=== PATIENT | female | born 1990 | race African-American/Black ===

== ENCOUNTER 2017-01-20 22:15 | Emergency (ER) | payer OTHER ==
[~2017-01-20] VITALS: Ht 167.6 cm; Wt 75.0 kg
[2017-01-20] MEDS ORDERED: TRAZ50TA11 PO (22:22)
[2017-01-20] MEDS ORDERED: HYDR-3363 PO (22:22)
[2017-01-20 22:57] LABS: CONTROL LINE UCG INT CTR LINE PRESENT
[2017-01-20] MEDS ORDERED: NITROFURANTOIN (MACROBID) 100 MG CAP PO ONE (23:15)
[2017-01-20 23:23] VITALS: BP 152/90
[2017-01-20] MEDS ORDERED: DIFL150T PO (23:46)
[2017-01-20] MEDS ORDERED: MACR100C43 PO (23:46)
== END 2017-01-20 23:55 | disposition home or self-care (01) ==
LOC: M ED 22:15
DX: N39.0 Urinary tract infection, site not specified (principal); F41.9 Anxiety disorder, unspecified; L50.8 Other urticaria; Z79.899 Other long term (current) drug therapy

== ENCOUNTER 2017-03-26 13:49 | Emergency (ER) | payer OTHER | END 2017-03-26 17:04 | disposition home or self-care (01) | LOC: M ED 13:49 | DX: L73.9 Follicular disorder, unspecified (principal) | CPT/HCPCS: 99282 ==

== ENCOUNTER 2017-05-14 20:35 | Emergency (ER) | payer OTHER ==
[2017-05-15] MEDS: cefTRIAXone SOD 250 MG VIAL (J0696) IM ×2 (00:44)
[2017-05-15] MEDS: AZITHROMYCIN 250 MG TAB PO ×2 (00:44)
[2017-05-15] MEDS: valACYclovir HCL 500 MG TAB PO ×2 (00:54)
[2017-05-15 01:21] LABS: CHLAMYDIA DNA AMPLIFICATION NEGATIVE (NEGATIVE); GC DNA AMPLIFICATION NEGATIVE (NEGATIVE)
[2017-05-15 10:55] LABS: HEPATITIS B SURFACE ANTIBODY NEGATIVE (POSITIVE)
[2017-05-15 11:04] LABS: HEPATITIS B SURFACE ANTIGEN NEGATIVE (NEGATIVE)
[2017-05-15 11:33] LABS: HIV 1&2 SCREEN CENTAUR NEGATIVE (NEGATIVE)
== END 2017-05-15 01:07 | disposition home or self-care (01) ==
LOC: M ED 20:35
DX: A60.09 Herpesviral infection of other urogenital tract (principal); L50.8 Other urticaria
CPT/HCPCS: J0696

== ENCOUNTER 2017-06-18 09:10 | Day surgery (SDC) | payer OTHER ==
[~2017-06-18 09:10] MED LIST: LIDOCAINE 2% MDV 20 ML VIAL As Ordered; PROPOFOL 200 MG/20 ML VIAL As Ordered
[2017-06-18] MEDS ORDERED: NS 1,000 ML IV (09:45)
== END 2017-06-18 11:08 | disposition home or self-care (01) ==
LOC: M OPP 09:10
DX: K58.1 Irritable bowel syndrome with constipation (principal); R10.84 Generalized abdominal pain; F41.9 Anxiety disorder, unspecified; L50.8 Other urticaria; Z79.899 Other long term (current) drug therapy
CPT/HCPCS: 45378

== ENCOUNTER 2018-07-30 19:22 | Emergency (ER) | payer OTHER ==
[~2018-07-30] VITALS: Ht 167.6 cm; Wt 83.6 kg
[~2018-07-30 19:22] MED LIST changes: +DIFL150T PO; +HYDR-3363 PO; +HYDR50TA70 PO; +KEFL500C17 PO; -LIDOCAINE 2% MDV 20 ML VIAL As Ordered; +LINZ290C PO; +MACR100C43 PO; +MIRE1IUD IU; -PROPOFOL 200 MG/20 ML VIAL As Ordered; +TRAZ-252 PO; +TRAZ1TAB14 PO; +VALA1TAB2 PO
[2018-07-30 20:23] LABS: BASO % 0.1 % (0.0-1.0); EOS # 0.1 10^3/uL (0.0-0.50); EOS % 1.2 % (0.0-3.0); HEMATOCRIT 43.4 % (36.0-47.0); HEMOGLOBIN 14.4 g/dl (12.0-15.5); LYMPH # 2.3 10^3/uL (1.5-6.5); LYMPH % 23.9 % (24.0-44.0); MEAN CORPUSCULAR HEMOGLOBIN 26.1 pg (27.0-33.0); MEAN CORPUSCULAR HGB CONC 33.2 g/dl (32.0-36.5); MEAN CORPUSCULAR VOLUME 78.6 fl (80.0-96.0); MONO # 0.5 10^3/uL (0.0-0.8); MONO % 5.4 % (0.0-5.0); NEUTROPHILS # 6.5 10^3/uL (1.8-7.7); PLATELET COUNT, AUTOMATED 238 10^3/uL (150-450); RED BLOOD COUNT 5.52 10^6/uL (4.00-5.40); WHITE BLOOD COUNT 9.4 10^3/uL (4.0-10.0)
[2018-07-30 20:52] LABS: BLOOD UREA NITROGEN 11 MG/DL (7-18); CARBON DIOXIDE LEVEL 28 MEQ/L (21-32); CHLORIDE LEVEL 103 MEQ/L (98-107); CREATININE FOR GFR 0.97 MG/DL (0.55-1.30); GLOMERULAR FILTRATION RATE > 60.0 (>60); GLUCOSE, FASTING 122 MG/DL (70-100); POTASSIUM SERUM 3.5 MEQ/L (3.5-5.1); SODIUM LEVEL 141 MEQ/L (136-145)
[2018-07-30] MEDS ORDERED: metroNIDAZOLE (FLAGYL) 500 MG TAB PO ONE (21:45)
[2018-07-30] MEDS ORDERED: ONDANSETRON 4 MG ORAL DISINTEGRATING TAB (Q0162 PER 1MG) PO ONE (21:45)
[2018-07-30] MEDS ORDERED: ONDA4TAB6 PO (21:48)
[2018-07-30] MEDS ORDERED: FLAG500T PO (21:48)
[2018-07-30 21:52] VITALS: BP 118/62
[2018-07-30 23:01] LABS: CHLAMYDIA DNA AMPLIFICATION NEGATIVE (NEGATIVE); GC DNA AMPLIFICATION NEGATIVE (NEGATIVE)
== END 2018-07-30 21:59 | disposition home or self-care (01) ==
LOC: M ED 19:22
DX: N76.0 Acute vaginitis (principal); R11.0 Nausea; L50.8 Other urticaria; Z97.5 Presence of (intrauterine) contraceptive device; Z79.899 Other long term (current) drug therapy
CPT/HCPCS: 80048; 81001; 84443; 84702; 85025; 87210; 87491; 87591; 99284; Q0162

== ENCOUNTER 2018-09-14 17:09 | Emergency (ER) | payer OTHER ==
[~2018-09-14] VITALS: Ht 167.6 cm; Wt 84.4 kg
[~2018-09-14 17:09] MED LIST changes: +FLAG500T PO; +ONDA4TAB6 PO
[2018-09-14] MEDS ORDERED: CETI5SOL3 PO (17:19)
[2018-09-14 18:41] LABS: EOS # 0.2 10^3/uL (0.0-0.50); HEMATOCRIT 41.6 % (36.0-47.0); HEMOGLOBIN 13.8 g/dl (12.0-15.5); LYMPH # 2.5 10^3/uL (1.5-6.5); LYMPH % 23.4 % (24.0-44.0); MEAN CORPUSCULAR HEMOGLOBIN 26.3 pg (27.0-33.0); MEAN CORPUSCULAR HGB CONC 33.2 g/dl (32.0-36.5); MEAN CORPUSCULAR VOLUME 79.4 fl (80.0-96.0); MONO # 0.7 10^3/uL (0.0-0.8); MONO % 6.5 % (0.0-5.0); NEUTROPHILS # 7.1 10^3/uL (1.8-7.7); NEUTROPHILS % 67.7 % (36.0-66.0); PLATELET COUNT, AUTOMATED 203 10^3/uL (150-450); RED BLOOD COUNT 5.24 10^6/uL (4.00-5.40); WHITE BLOOD COUNT 10.5 10^3/uL (4.0-10.0)
[2018-09-14 19:31] LABS: BLOOD UREA NITROGEN 7 MG/DL (7-18); CALCIUM LEVEL 8.8 MG/DL (8.5-10.1); CARBON DIOXIDE LEVEL 27 MEQ/L (21-32); CHLORIDE LEVEL 105 MEQ/L (98-107); CREATININE FOR GFR 0.78 MG/DL (0.55-1.30); GLOMERULAR FILTRATION RATE > 60.0 (>60); GLUCOSE, FASTING 85 MG/DL (70-100); HCG, SERUM QUANTITATIVE 42610 MIU/ML; POTASSIUM SERUM 3.9 MEQ/L (3.5-5.1); SODIUM LEVEL 138 MEQ/L (136-145)
[2018-09-14 21:14] VITALS: BP 108/61
--- NOTE | 2018-09-14 21:49 | REPVR ---
EXAM: US First Trimester, Transabdominal EXAM DATE/TIME: 09/14/2018 8:15 PM CLINICAL HISTORY: 27 years old, female; Lmp or gestational age (in weeks): 08/03/18; Antepartum complications; Bleeding; ; Additional info: Cramping, vaginal bleeding, 6 weeks preg TECHNIQUE: Imaging protocol: Real-time transabdominal obstetrical ultrasound of the maternal pelvis and a first trimester , less than 14 weeks 0 days, with image documentation. COMPARISON: No relevant prior studies available. FINDINGS: GESTATION: Gestation: There is a single intrauterine gestational sac. A yolk sac is present. Heart rate: Cardiac activity noted at a rate of 118 beats per minute. BIOMETRY: Estimated gestational age: The measured .83 cm for an estimated menstrual age of 6 weeks and 6 days. MATERNAL: Uterus: Unremarkable. Cervix: Unremarkable. Right adnexa: Right ovary 3.1 x 2.5 x 2.9 cm Arterial and venous blood flow in the right ovary noted on pulsed doppler and color doppler examination. Left adnexa: Left ovary measures 3.7 x 2.1 x 2.4 cm. Arterial and venous blood flow in the left ovary noted on pulsed doppler and color doppler examination. Intraperitoneal: No intraperitoneal free fluid. IMPRESSION: Single live intrauterine with an estimated menstrual age of 6 weeks and 6 days. Expected date of delivery 05/10/2019. Electronically signed by: Magy Pena On 09/14/2018 21:49:27 PM
== END 2018-09-14 21:17 | disposition home or self-care (01) ==
LOC: M ED 17:09
DX: O20.0 Threatened abortion (principal); O99.511 Diseases of the respiratory system complicating pregnancy, first trimester; J30.2 Other seasonal allergic rhinitis; Z87.440 Personal history of urinary (tract) infections; Z3A.01 Less than 8 weeks gestation of pregnancy; Z79.899 Other long term (current) drug therapy

== ENCOUNTER → 2018-10-07 | Outpatient (CLI) | payer OTHER ==
[~2018-10-07] MED LIST changes: +CETI5SOL3 PO
[2018-10-07 18:28] LABS: BASO % 0.1 % (0.0-1.0); EOS # 0.1 10^3/uL (0.0-0.50); EOS % 1.1 % (0.0-3.0); HEMATOCRIT 39.5 % (36.0-47.0); HEMOGLOBIN 13.1 g/dl (12.0-15.5); LYMPH # 1.8 10^3/uL (1.5-6.5); LYMPH % 14.5 % (24.0-44.0); MEAN CORPUSCULAR HEMOGLOBIN 25.9 pg (27.0-33.0); MEAN CORPUSCULAR HGB CONC 33.2 g/dl (32.0-36.5); MEAN CORPUSCULAR VOLUME 78.1 fl (80.0-96.0); MONO # 0.7 10^3/uL (0.0-0.8); MONO % 5.2 % (0.0-5.0); NEUTROPHILS # 9.9 10^3/uL (1.8-7.7); NEUTROPHILS % 78.8 % (36.0-66.0); PLATELET COUNT, AUTOMATED 247 10^3/uL (150-450); RED BLOOD COUNT 5.06 10^6/uL (4.00-5.40); WHITE BLOOD COUNT 12.6 10^3/uL (4.0-10.0)
[2018-10-07 22:24] LABS: CHLAMYDIA DNA AMPLIFICATION NEGATIVE (NEGATIVE); GC DNA AMPLIFICATION NEGATIVE (NEGATIVE)
[2018-10-08 12:56] LABS: HEPATITIS C VIRUS ABY INDEX 0.1 INDEX (<0.8); HIV 1&2 SCREEN CENTAUR NEGATIVE (NEGATIVE); RUBELLA IgG QUALITATIVE IMMUNE (IMMUNE)
== END ==
LOC: M SMT 14:24
PROVIDERS: ATTEND Advanced Practice Midwife
DX: Z36.89 Encounter for other specified antenatal screening (principal)

== ENCOUNTER → 2018-10-13 | Outpatient (CLI) | payer OTHER | LOC: M SMT 10:34 | PROVIDERS: ATTEND Advanced Practice Midwife | DX: Z34.81 Encounter for supervision of other normal pregnancy, first trimester (principal); Z3A.00 Weeks of gestation of pregnancy not specified ==

== ENCOUNTER → 2018-12-10 | Outpatient (CLI) | payer OTHER ==
--- NOTE | 2018-12-10 13:46 | REP ---
OB ULTRASOUND: Real-time sonographic evaluation of the gravid uterus is performed. There is a single living intrauterine gestation. The estimated gestational age is 18 weeks 3 days, EDC 05/10/2019. Today's measurements indicate appropriate growth. BPD 44 mm = 19 weeks 2 days, 74th percentile HC 169 mm = 19 weeks 4 days, 83rd percentile AC 146 mm = 19 weeks 6 days, 81st percentile Femur length 33 mm = 20 weeks 3 days, over 95th percentile HC/AC ratio 1.16 within normal range. Estimated weight 329 grams, over 97th percentile. Cervix is closed and measures 4.6 cm in length. heart rate 150 beats per minute. SEEN/GROSSLY UNREMARKABLE Lateral ventricles Yes Posterior fossa No Upper lip No Four-chamber heart Yes LVOT No RVOT Yes Stomach Yes Cord insertion Yes Three vessel cord Yes Kidneys Yes Bladder Yes Spine Yes position: Vertex. Placenta: Posterior and grade 1 with no previa or abruption. Amniotic fluid: Within normal limits. Electronically Signed by Paul Capps MD 12/14/2018 08:51 A
== END ==
LOC: M RAD 11:43
PROVIDERS: ATTEND Advanced Practice Midwife
DX: Z34.82 Encounter for supervision of other normal pregnancy, second trimester (principal)

== ENCOUNTER → 2018-12-24 | Outpatient (CLI) | payer OTHER ==
--- NOTE | 2018-12-24 23:24 | REP ---
OB ULTRASOUND: Real-time sonographic evaluation of gravid uterus performed. There is a single living intrauterine gestation. Estimated gestational age 20 weeks 3 days, based on LMP, EDC 05/10/2019. Today's measurements indicate somewhat greater than expected growth. BPD 55 mm = 22 weeks 6 days, over 95th percentile HC 200 mm = 22 weeks 1 days, over 95th percentile AC 173 mm = 22 weeks 2 days, 90th percentile FL 38 mm = 22 weeks 2 days, over 95th percentile HC/AC ratio 1.15, within normal range. Estimated weight 490 grams, over 97th percentile. Cervix is closed and measures 3.7 cm in length. heart rate 139 beats per minute. SEEN/GROSSLY UNREMARKABLE Lateral ventricles yes Posterior fossa yes Upper lip yes Four-chamber heart yes LVOT yes RVOT yes Stomach yes Cord insertion yes Three vessel cord yes Kidneys yes Bladder yes Spine yes position: Vertex. Placenta: Posterior and grade 0 with no previa or abruption. Amniotic fluid: Within normal limits. Electronically Signed by Paul Capps MD 12/25/2018 03:38 P
== END ==
LOC: M RAD 16:38
PROVIDERS: ATTEND Advanced Practice Midwife
DX: Z34.82 Encounter for supervision of other normal pregnancy, second trimester (principal); Z3A.20 20 weeks gestation of pregnancy

== ENCOUNTER → 2019-02-09 | Outpatient (CLI) | payer OTHER ==
[~2019-02-09] MED LIST changes: -VALA1TAB2 PO; +VALA1TAB64 PO
[2019-02-09 17:52] LABS: BASO % 0.1 % (0.0-1.0); EOS # 0.5 10^3/uL (0.0-0.5); EOS % 4.8 % (0.0-3.0); HEMATOCRIT 37.1 % (36.0-47.0); HEMOGLOBIN 12.2 g/dl (12.0-15.5); LYMPH # 1.9 10^3/uL (1.5-5.0); LYMPH % 18.8 % (24.0-44.0); MEAN CORPUSCULAR HEMOGLOBIN 26.6 pg (27.0-33.0); MEAN CORPUSCULAR HGB CONC 32.9 g/dl (32.0-36.5); MONO # 0.6 10^3/uL (0.0-0.8); MONO % 6.1 % (0.0-5.0); NEUTROPHILS # 7.1 10^3/uL (1.5-8.5); NEUTROPHILS % 69.3 % (36.0-66.0); PLATELET COUNT, AUTOMATED 230 10^3/uL (150-450); RED BLOOD COUNT 4.58 10^6/uL (4.00-5.40); WHITE BLOOD COUNT 10.2 10^3/uL (4.0-10.0)
== END ==
LOC: M PLALAB 13:52
PROVIDERS: ATTEND Advanced Practice Midwife
DX: Z34.82 Encounter for supervision of other normal pregnancy, second trimester (principal)

== ENCOUNTER → 2019-03-16 | Outpatient (CLI) | payer OTHER ==
[2019-03-20 00:09] LABS: HEMOGLOBIN A 93.8 % (96.4-98.8); HEMOGLOBIN A2 4.9 % (1.8-3.2); HEMOGLOBIN F (FETAL) 1.3 % (0.0-2.0); HGB SOLUBILITY Negative (Negative)
== END ==
LOC: M PLALAB 10:52
PROVIDERS: ATTEND Advanced Practice Midwife
DX: O26.849 Uterine size-date discrepancy, unspecified trimester (principal)

== ENCOUNTER → 2019-03-23 | Outpatient (CLI) | payer OTHER ==
--- NOTE | 2019-03-24 03:00 | REP ---
Clinical: Growth evaluation. Comparison: 12/24/2018 . Findings: Examination demonstrates a single live intrauterine in cephalic presentation. motion is identified by technologist. Placenta is noted posterior/left lateral and grade I I without evidence for placenta previa or abruption. Amniotic fluid volume is normal. Cervix measures 3.1 cm in length and appears closed. No evidence for nuchal cord. Gestational age by LMP 33 weeks 1 day with DERRICK 05/10/2019 . Gestational age by current measurements 34 weeks 3 days with DERRICK 05/01/2019 . FHR equals 126 beats per minute. BPD 8.6 cm 34 weeks 5 days HC 31.8 cm 35 weeks 5 days AC 31.3 cm 35 weeks 2 days FL 6.6 cm 34 weeks 0 days HL 5.8 cm 33 weeks 4 days HC/AC ratio 1.02 Estimated weight 2544 grams ( 80th percentile). Amniotic fluid index: 8.9 cm (8.3 - 24.5) Impression: single live intrauterine in cephalic presentation demonstrating appropriate interval growth. No gross abnormalities are identified.
== END ==
LOC: M WHC 08:05
PROVIDERS: ATTEND Advanced Practice Midwife
DX: Z36.2 Encounter for other antenatal screening follow-up (principal); O26.849 Uterine size-date discrepancy, unspecified trimester; Z3A.34 34 weeks gestation of pregnancy

== ENCOUNTER 2019-03-25 18:34 | Outpatient (CLI) | payer OTHER ==
[~2019-03-25] VITALS: Ht 167.6 cm; Wt 88.9 kg
[2019-03-25 18:52] VITALS: BP 124/81
[2019-03-25 19:39] LABS: APPEARANCE, URINE HAZY (CLEAR); BACTERIA, URINE AUTO 1+ (NEGATIVE); BILIRUBIN, URINE AUTO NEGATIVE (NEGATIVE); BLOOD, URINE BLOOD NEGATIVE (NEGATIVE); COLOR, URINE YELLOW (YELLOW); GLUCOSE, URINE (UA) AUTO NEGATIVE (NEGATIVE); KETONE, URINE AUTO TRACE mg/dL (NEGATIVE); LEUKOCYTE ESTERASE, URINE AUTO NEGATIVE (NEGATIVE); MUCUS, URINE SMALL (NEGATIVE); NITRITE, URINE AUTO NEGATIVE (NEGATIVE); PROTEIN, URINE AUTO NEGATIVE (NEGATIVE); RBC, URINE AUTO 1 /HPF (0-3); SPECIFIC GRAVITY URINE AUTO 1.013 (1.002-1.035); SQUAMOUS EPITHELIAL CELL UR AU 1 /HPF (0-6); UROBILINOGEN, URINE AUTO 0.2 mg/dL (0.0-2.0); WBC, URINE AUTO 2 /HPF (0-3)
[2019-03-25 19:46] VITALS: BP 130/82
--- NOTE | 2019-03-25 19:52 | IPNPDOC ---
Text Note Date of Service The patient was seen on 03/25/19. NOTE Outpatient 28yo DERRICK 05/10/2019. Presents @ 33w3d with complaints of abdominal pain and nausea associated with dizziness and feeling fatigued. Denies regular UC, LOF or bleeding. Reports good activity. States her abdomen hurts whenever baby moves. Reports eating only a bagel and 1/2 banana today. Cat I tracing, 135, + accels Irregular uterine irritability VSS UA SG 1.013, trace ketones Reviewed need for small frequent protein rich snack/meals every 2-3 hours to reduce hypoglycemic symptoms. Enc increased hydration. Discussed after hours access, PTL, daily FKC, warnings reviewed Discharged home. Keep appt next week. VS,Fishbone, I+O VS, Fishbone, I+O Vital Signs Date Time Temp Pulse Resp B/P (MAP) Pulse Ox O2 Delivery O2 Flow Rate FiO2 03/25/19 18:52 101 124/81 (95) Dayan Styles CNM Mar 25, 2019 19:52
== END 2019-03-25 19:50 | disposition home or self-care (01) ==
LOC: M LDO 18:34
PROVIDERS: ATTEND Advanced Practice Midwife
DX: O26.893 Other specified pregnancy related conditions, third trimester (principal); R10.9 Unspecified abdominal pain; R11.0 Nausea; R42 Dizziness and giddiness; O47.03 False labor before 37 completed weeks of gestation, third trimester; Z3A.33 33 weeks gestation of pregnancy

== ENCOUNTER → 2019-04-19 | Outpatient (CLI) | payer OTHER ==
[~2019-04-19] MED LIST changes: +VALA1TAB5 PO; -VALA1TAB64 PO
== END ==
LOC: M PLALAB 14:30
PROVIDERS: ATTEND Advanced Practice Midwife
DX: Z34.03 Encounter for supervision of normal first pregnancy, third trimester (principal)

== ENCOUNTER → 2019-04-25 | Outpatient (REF) | payer OTHER | LOC: M WHC 13:03 | PROVIDERS: ATTEND Advanced Practice Midwife | DX: Z36.85 Encounter for antenatal screening for Streptococcus B (principal) ==

== ENCOUNTER 2019-05-04 07:40 | Inpatient (IN) | payer OTHER ==
[~2019-05-04] VITALS: Ht 167.6 cm; Wt 94.5 kg
[2019-05-04] VITALS (32 sets, daily range): BP systolic 106–138; BP diastolic 66–96
[2019-05-04] MEDS ORDERED: PRENTAB9 PO (08:32)
[2019-05-04] MEDS ORDERED: CETI10CA13 PO (08:57)
[2019-05-04] MEDS ORDERED: VENTAER INH (09:01)
--- NOTE | 2019-05-04 09:32 | HPE ---
DATE OF ADMISSION: 05/04/2019 Lynda is a 28-year-old 3, para 0-0-2-0 at 39-1/7 weeks gestation, EDC of 05/10/2019 based on last menstrual period and confirmed by first trimester ultrasound. She does present to labor and delivery this morning with report of onset of contractions at 2200 yesterday and reports that they have become progressively closer and more uncomfortable throughout the night with 0600 being the time frame where she feels they have been every 2-3 minutes. She does deny vaginal bleeding and leakage of fluid. The fetus has been active. Her care was [facility] at [facility]. 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 SURGERIES: Dilatation and curettage (D C). FAMILY HISTORY: Lupus. Hypertension. SOCIAL HISTORY: The patient is . The father of the baby, however, is present and a supportive significant other. She is a nonsmoker. She denies alcohol and drug use. There is a positive history of positive chlamydia prior to and she denies history of abuse physical, sexual and emotional. ALLERGIES: No known drug allergies. CURRENT MEDICATIONS: Include: vitamin. OBJECTIVE: Temperature 98.3, pulse 99, respirations 18, BP is 125/87. She is alert and oriented times three. She does tense up with her contractions. heart rate is 140 with moderate variability, positive accelerations noted. There is no pattern of decelerations. Her contractions are every 2-3 minutes. They do palpate moderate. Her abdomen is gravid, cephalic presentation with an estimated weight of 8 pounds. Sterile vaginal exam 4 cm dilated 80% effaced, -2 station posterior and soft. No bloody show with the exam, membranes are intact noted to palpation. ASSESSMENT: Intrauterine at 39-1/7 weeks. heart rate category 1 active labor. PLAN: Admit the patient to labor and delivery. Routine labs. Out of bed ad kelvin. Clear liquid diet. The patient is considering all available pain relief options through her labor including IV pain medications, out of bed ambulation, positioning, as well as an epidural. I did consent her verbally for emergency surgery and blood products if they were necessary. I do anticipate continued labor and a spontaneous vaginal delivery . May consider artificial rupture of membranes (AROM) and/or IV Pitocin if necessary to augment her labor following epidural administration.
[2019-05-04 09:47] LABS: HEMATOCRIT 40.8 % (36.0-47.0); HEMOGLOBIN 13.5 g/dl (12.0-15.5); MEAN CORPUSCULAR HEMOGLOBIN 26.7 pg (27.0-33.0); MEAN CORPUSCULAR HGB CONC 33.1 g/dl (32.0-36.5); MEAN CORPUSCULAR VOLUME 80.6 fl (80.0-96.0); PLATELET COUNT, AUTOMATED 163 10^3/uL (150-450); RED BLOOD COUNT 5.06 10^6/uL (4.00-5.40); WHITE BLOOD COUNT 10.3 10^3/uL (4.0-10.0)
[2019-05-04] MEDS ORDERED: PROMETHAZINE INJ 25 MG/ML VIAL (J2550) IV ONE (11:45)
[2019-05-04] MEDS ORDERED: BUTORPHANOL 2 MG/ML INJ (J0595) IV ONE (11:45)
[2019-05-04] MEDS ORDERED: FENTANYL 2MCG/ML ROPIVACAINE 0.2% IN 0.9% NACL 100ML IVBAG As Ordered ONE (14:42)
[2019-05-04] MEDS ORDERED: LACTATED RINGER'S 1000 ML IV ONE (15:00)
[2019-05-04] MEDS: LR 1,000 ML IV SCH ×2 (15:30→22:08)
[2019-05-04] MEDS: FENTANYL/ROPIVACAINE/NACL BAG 100 ML EPIDURAL SCH (16:10)
[2019-05-04] MEDS ORDERED: EPIDURAL COMMENT XX SCH (16:30)
[2019-05-04] MEDS ORDERED: diphenhydrAMINE INJ 50MG/ML VIAL (J1200) IV PRN (16:30)
[2019-05-04] MEDS ORDERED: REFRIGERATOR IV KEYS XX PRN (16:30)
[2019-05-04] MEDS ORDERED: ePHEDrine SULFATE 25 MG/5 ML(5MG/ML) SYRINGE IV PRN (16:30)
[2019-05-04] MEDS ORDERED: LACTATED RINGER'S 1000 ML IV PRN (16:30)
[2019-05-04] MEDS ORDERED: NALOXONE INJ 0.4 MG/1 ML VIAL (J2310) IV PRN (16:30)
[2019-05-04] MEDS ORDERED: ONDANSETRON 4MG/2ML VIAL (J2405) IV PRN (16:30)
[2019-05-04] MEDS ORDERED: EPIDURAL/PCA KEYS XX PRN (16:30)
[2019-05-04] MEDS ORDERED: OXYTOCIN DRIP 30 UNITS in IV 1 EA IV SCH (17:15)
[2019-05-05] VITALS (22 sets, daily range): BP systolic 94–148; BP diastolic 63–83
[2019-05-05] MEDS ORDERED: FENTANYL 2MCG/ML ROPIVACAINE 0.2% IN 0.9% NACL 100ML IVBAG As Ordered ONE (00:59)
[2019-05-05] MEDS: FENTANYL/ROPIVACAINE/NACL BAG 100 ML EPIDURAL SCH (01:00)
[2019-05-05] MEDS ORDERED: OXYTOCIN DRIP 30 UNITS in IV 1 EA IV SCH (06:50)
[2019-05-05] MEDS ORDERED: METHYLERGONOVINE MALEATE 0.2 MG TAB PO PRN (07:00)
[2019-05-05] MEDS ORDERED: DIBUCAINE 1% OINTMENT 30GM TOP PRN (07:00)
[2019-05-05] MEDS ORDERED: RHOGAM 300 MCG (1500 IU) INJ (J2790) IM SCH (07:00)
[2019-05-05] MEDS ORDERED: DOCUSATE SODIUM 100 MG CAP PO PRN (07:00)
[2019-05-05] MEDS ORDERED: IBUPROFEN 600 MG TAB PO PRN (07:00)
[2019-05-05] MEDS ORDERED: MEASLES,MUMPS,RUBELLA VACCINE INJ (MMR-II) (90707) SC SCH (07:00)
[2019-05-05] MEDS ORDERED: ACETAMINOPHEN TAB 650MG DOSE (2X325MG) PO PRN (07:00)
--- NOTE | 2019-05-05 07:41 | DN ---
DATE: 05/05/2019 Lynda is a 28-year-old 3, para 1-0-2-1 now who was admitted to labor and delivery in active labor. She utilized an epidural for her labor coping. IV Pitocin was then started to augment her labor. She reached full dilation at 0255. She pushed following 1 hour of passive descent, second stage was initiated and she pushed to a normal spontaneous vaginal delivery of a live male in right occiput anterior (MASHA) position with restitution to right occiput transverse (ROT) position at 0532. There was a mild shoulder dystocia that was relieved immediately with Mercedes maneuver. The newborns mouth and nares were bulb suctioned and he was placed on maternal abdomen for stimulation and crying actively. The cord was clamped times two, once pulsations ceased, cut by the father of the baby under my direction. Cord blood was obtained. Spontaneous expulsion of an intact placenta with three-vessel cord by Lemons mechanism was at 0548. Uterine hemostasis achieved with IV Pitocin rapid infusion and uterine fundal massage. Estimated blood loss 350 mL. Perineum and vagina inspected noted have a vaginal abrasion. Two interrupted sutures were placed just for hemostasis. male weighed 4180 grams, 9 pounds 3 ounces, 7 and 8. Family have named him Fede and the mom is going to plan to breastfeed. At the close of delivery lap counts, needle counts and instrument counts were correct and verified.
[2019-05-05] MEDS: IBUPROFEN 800 MG TAB PO PRN ×2 (08:16→17:09)
[2019-05-05] MEDS: PRENATAL VITAMINS CHEWABLE TABLET PO SCH (10:20)
[2019-05-06] MEDS: IBUPROFEN 800 MG TAB PO PRN ×2 (04:31→16:35)
[2019-05-06 05:52] VITALS: BP 112/64
[2019-05-06] MEDS: PRENATAL VITAMINS CHEWABLE TABLET PO SCH (08:08)
[2019-05-06] MEDS: ACETAMINOPHEN 500 MG TAB PO PRN ×2 (08:12→17:52)
[2019-05-06 17:51] VITALS: BP 116/68
[2019-05-07] MEDS: ACETAMINOPHEN 500 MG TAB PO PRN (00:24)
[2019-05-07 05:42] VITALS: BP 117/62
[2019-05-07] MEDS: IBUPROFEN 800 MG TAB PO PRN (07:27)
[2019-05-07] MEDS: PRENATAL VITAMINS CHEWABLE TABLET PO SCH (07:27)
--- NOTE | 2019-05-08 10:02 | IPN ---
DATE OF SERVICE: 05/05/2019 This patient requested circumcision of her male . After discussing risks and benefits of circumcision, the medical and nonmedical indications, penile block and aftercare expressed understanding of penile block aftercare, signed the consent form. All questions were answered. 20-minute discussion. 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
== END 2019-05-07 13:20 | disposition home or self-care (01) | DRG 807 ==
LOC: M LDO 07:40 → M LDI 08:47 → M OBS 05-05 10:46
PROVIDERS: ADMIT Advanced Practice Midwife; ATTEND Advanced Practice Midwife
PROC: 10E0XZZ Delivery of Products of Conception, External Approach (ICD-10-PCS; principal; 2019-05-05)
DX: O99.02 Anemia complicating childbirth (principal); Z37.0 Single live birth; D56.3 Thalassemia minor; Z3A.39 39 weeks gestation of pregnancy; O66.0 Obstructed labor due to shoulder dystocia